=== PATIENT | male | born 1975 | race Hispanic/Latino ===

== ENCOUNTER → 2017-07-11 | Outpatient (CLI) | payer MEDICARE ==
[~2017-07-11] MED LIST: AEC81 PO; AMLO10TA2 PO; FOLI1CAP2 PO; INSU10VI3 SQ; METO50TA18 PO; ONDA4TAB7 PO; REGADENOSON 0.4 MG/5 ML PF SYG IVP SCH; [UNRECOGNIZED DRUG - CODE] PO
== END | disposition home or self-care (01) ==
LOC: SHCH 07:43
PROVIDERS: ATTEND Internal Medicine Cardiovascular Disease
DX: I12.9 Hypertensive chronic kidney disease with stage 1 through stage 4 chronic kidney disease, or unspecified chronic kidney disease (principal); E11.22 Type 2 diabetes mellitus with diabetic chronic kidney disease; E11.40 Type 2 diabetes mellitus with diabetic neuropathy, unspecified; N18.9 Chronic kidney disease, unspecified; I25.5 Ischemic cardiomyopathy
CPT/HCPCS: 78452; 93017; 96374; A9500 ×2; J2785

== ENCOUNTER → 2017-08-10 | Outpatient (CLI) | payer MEDICARE, OTHER ==
[~2017-08-10] MED LIST changes: -REGADENOSON 0.4 MG/5 ML PF SYG IVP SCH
== END | disposition home or self-care (01) ==
LOC: LAB 15:33
PROVIDERS: ATTEND Internal Medicine
DX: E11.22 Type 2 diabetes mellitus with diabetic chronic kidney disease (principal); E11.21 Type 2 diabetes mellitus with diabetic nephropathy; N18.6 End stage renal disease; Z94.0 Kidney transplant status
CPT/HCPCS: 36415; 86850; 86900; 86901

== ENCOUNTER 2017-10-12 22:37 | Emergency (ER) | payer MEDICARE ==
[2017-10-12] MEDS ORDERED: ASPIRIN 325MG EC TAB 325 MG TABLET.DR PO ONE (22:50)
[2017-10-12 23:21] LABS: BASOPHILS % (AUTO) 0.6 % (0.0-5.0); EOSINOPHILS % (AUTO) 3.3 % (0.0-8.0); LYMPHOCYTES % (AUTO) 33.3 % (21.0-51.0); MEAN CORPUSCULAR HEMOGLOBIN 29.4 pg (27.0-33.0); MEAN CORPUSCULAR HGB CONC 34.2 g/dL (32.0-36.0); MEAN CORPUSCULAR VOLUME 86.2 fL (79-99); MONOCYTES % (AUTO) 12.6 % (3.0-13.0); NEUTROPHILS % (AUTO) 50.2 % (40.0-77.0); PLATELET COUNT (AUTO) 323 K/uL (130-400); RED BLOOD CELL COUNT(AUTO) 3.95 MIL/uL (4.50-6.20); WHITE BLOOD COUNT (AUTO) 12.2 K/uL (4.8-10.8)
[2017-10-12 23:29] LABS: INR 0.93 (0.85-1.15); PARTIAL THROMBOPLASTIN TIME 27.1 SEC (26.3-35.5); PROTHROMBIN TIME 9.8 SEC (9.6-11.6)
[2017-10-12 23:47] LABS: ALBUMIN 3.3 g/dL (3.5-5.0); BILIRUBIN,TOTAL 0.4 mg/dL (0.2-1.0); CREATINE KINASE MB 9.5 ng/mL (0.5-3.6); POTASSIUM 4.1 mmol/L (3.5-5.1); TOTAL PROTEIN, SERUM 8.9 g/dL (6.0-8.3)
[2017-10-12 23:50] LABS: CREATININE 7.9 mg/dL (0.5-1.5)
== END 2017-10-13 02:31 | disposition home or self-care (01) ==
LOC: EDH 22:37
DX: R07.9 Chest pain, unspecified (principal); J40 Bronchitis, not specified as acute or chronic; I12.0 Hypertensive chronic kidney disease with stage 5 chronic kidney disease or end stage renal disease; E11.22 Type 2 diabetes mellitus with diabetic chronic kidney disease; N18.6 End stage renal disease; E78.5 Hyperlipidemia, unspecified; J18.9 Pneumonia, unspecified organism; Z99.2 Dependence on renal dialysis
CPT/HCPCS: 36415; 71045; 80053; 82550; 82553; 83874; 84484; 85025; 85610; 85730; 93005; 94761

== ENCOUNTER 2017-12-04 02:58 | Emergency (ER) | payer MEDICARE ==
[2017-12-04 05:31] LABS: BASOPHILS % (AUTO) 0.6 % (0.0-5.0); EOSINOPHILS % (AUTO) 3.2 % (0.0-8.0); HEMATOCRIT 32.8 % (42-54); LYMPHOCYTES % (AUTO) 33.9 % (21.0-51.0); MEAN CORPUSCULAR HEMOGLOBIN 30.6 pg (27.0-33.0); MEAN CORPUSCULAR HGB CONC 35.4 g/dL (32.0-36.0); MEAN CORPUSCULAR VOLUME 86.3 fL (79-99); MONOCYTES % (AUTO) 11.7 % (3.0-13.0); NEUTROPHILS % (AUTO) 50.6 % (40.0-77.0); NUCLEATED RED BLOOD CELLS 0.1 % (0.0-0.19); PLATELET COUNT (AUTO) 305 K/uL (130-400); RED CELL DISTRIBUTION WIDTH 13.9 % (11.0-15.5); WHITE BLOOD COUNT (AUTO) 14.6 K/uL (4.8-10.8)
[2017-12-04 05:45] LABS: INR 0.9 (0.85-1.15); PARTIAL THROMBOPLASTIN TIME 25.7 SEC (26.3-35.5); PROTHROMBIN TIME 9.5 SEC (9.6-11.6)
[2017-12-04 05:49] LABS: RAPID GROUP A STREP NEGATIVE (NEGATIVE)
[2017-12-04 05:58] LABS: ALBUMIN 3.3 g/dL (3.5-5.0); BILIRUBIN,TOTAL 0.3 mg/dL (0.2-1.0); POTASSIUM 5.2 mmol/L (3.5-5.1)
[2017-12-04 06:04] LABS: CREATININE 11.9 mg/dL (0.5-1.5)
== END 2017-12-04 06:17 | disposition home or self-care (01) ==
LOC: EDH 02:58
DX: J20.9 Acute bronchitis, unspecified (principal); J10.1 Influenza due to other identified influenza virus with other respiratory manifestations; I12.0 Hypertensive chronic kidney disease with stage 5 chronic kidney disease or end stage renal disease; E11.22 Type 2 diabetes mellitus with diabetic chronic kidney disease; N18.6 End stage renal disease; Z79.4 Long term (current) use of insulin; Z99.2 Dependence on renal dialysis
CPT/HCPCS: 36415; 71045; 80053; 82550; 83605; 83690; 83874; 84484; 85025; 85610; 85730; 87804; 87880; 93005; 94761

== ENCOUNTER 2018-04-28 07:03 | Emergency (ER) | payer MEDICARE ==
[~2018-04-28 07:03] MED LIST changes: -AMLO10TA2 PO; +AMLO10TA6 PO; -FOLI1CAP2 PO; -ONDA4TAB7 PO
[2018-04-28] MEDS ORDERED: MORPHINE SULFATE 4 MG/1ML SYG ONE (07:54)
[2018-04-28] MEDS ORDERED: ONDANSETRON HCL 4 MG/2 ML VIAL ONE (07:54)
[2018-04-28 07:58] LABS: BASOPHILS % (AUTO) 1.4 % (0.0-5.0); EOSINOPHILS % (AUTO) 3.2 % (0.0-8.0); HEMATOCRIT 35.2 % (42-54); LYMPHOCYTES % (AUTO) 23.9 % (21.0-51.0); MEAN CORPUSCULAR HEMOGLOBIN 29.4 pg (27.0-33.0); MEAN CORPUSCULAR HGB CONC 33.7 g/dL (32.0-36.0); MONOCYTES % (AUTO) 10.8 % (3.0-13.0); NEUTROPHILS % (AUTO) 60.7 % (40.0-77.0); PLATELET COUNT (AUTO) 318 K/uL (130-400); RED BLOOD CELL COUNT(AUTO) 4.04 MIL/uL (4.50-6.20); RED CELL DISTRIBUTION WIDTH 14.4 % (11.0-15.5)
[2018-04-28 08:19] LABS: ALBUMIN 3.1 g/dL (3.5-5.0); BILIRUBIN,TOTAL 0.3 mg/dL (0.2-1.0); TOTAL PROTEIN, SERUM 9.2 g/dL (6.0-8.3)
[2018-04-28 08:25] LABS: CREATININE 9.7 mg/dL (0.5-1.5)
[2018-05-12] MEDS ORDERED: OSEL30CA PO (09:22)
[2018-05-12] MEDS ORDERED: CLIN300C9 PO (10:00)
== END 2018-04-28 10:19 | disposition home or self-care (01) ==
LOC: EDH 07:03
DX: K29.70 Gastritis, unspecified, without bleeding (principal); I12.0 Hypertensive chronic kidney disease with stage 5 chronic kidney disease or end stage renal disease; E11.22 Type 2 diabetes mellitus with diabetic chronic kidney disease; N18.6 End stage renal disease; E78.5 Hyperlipidemia, unspecified; J18.9 Pneumonia, unspecified organism; Z99.2 Dependence on renal dialysis
CPT/HCPCS: 36415 ×2; 74176; 80048; 80053; 83690; 84484; 85025 ×2; 93005; 96374; 96375; 99285 ×2; J2270; J2405

== ENCOUNTER 2018-04-28 18:37 | Emergency (ER) | payer MEDICARE ==
[2018-04-28 19:54] LABS: BASOPHILS % (AUTO) 1.3 % (0.0-5.0); HEMATOCRIT 35.2 % (42-54); LYMPHOCYTES % (AUTO) 27.8 % (21.0-51.0); MEAN CORPUSCULAR HEMOGLOBIN 29.5 pg (27.0-33.0); MEAN CORPUSCULAR HGB CONC 33.7 g/dL (32.0-36.0); MEAN CORPUSCULAR VOLUME 87.5 fL (79-99); MONOCYTES % (AUTO) 9.8 % (3.0-13.0); NEUTROPHILS % (AUTO) 58.1 % (40.0-77.0); PLATELET COUNT (AUTO) 300 K/uL (130-400); RED BLOOD CELL COUNT(AUTO) 4.02 MIL/uL (4.50-6.20); RED CELL DISTRIBUTION WIDTH 14.1 % (11.0-15.5); WHITE BLOOD COUNT (AUTO) 10.1 K/uL (4.8-10.8)
[2018-04-28 20:12] LABS: POTASSIUM 4.6 mmol/L (3.5-5.1)
== END 2018-04-28 21:07 | disposition home or self-care (01) ==
LOC: EDH 18:37
DX: R42 Dizziness and giddiness (principal)
CPT/HCPCS: 36415; 80048; 84484; 85025; 93005

== ENCOUNTER 2018-05-03 17:36 | Emergency (ER) | payer MEDICARE ==
[2018-05-03 18:50] LABS: BASOPHILS % (AUTO) 0.8 % (0.0-5.0); EOSINOPHILS % (AUTO) 4.9 % (0.0-8.0); HEMATOCRIT 33.5 % (42-54); LYMPHOCYTES % (AUTO) 35.1 % (21.0-51.0); MEAN CORPUSCULAR HEMOGLOBIN 29.2 pg (27.0-33.0); MEAN CORPUSCULAR HGB CONC 33.8 g/dL (32.0-36.0); MEAN CORPUSCULAR VOLUME 86.5 fL (79-99); MONOCYTES % (AUTO) 13.1 % (3.0-13.0); NEUTROPHILS % (AUTO) 46.1 % (40.0-77.0); PLATELET COUNT (AUTO) 280 K/uL (130-400); RED BLOOD CELL COUNT(AUTO) 3.87 MIL/uL (4.50-6.20); RED CELL DISTRIBUTION WIDTH 14.3 % (11.0-15.5); WHITE BLOOD COUNT (AUTO) 10.2 K/uL (4.8-10.8)
[2018-05-03] MEDS ORDERED: ONDANSETRON HCL 4 MG/2 ML VIAL ONE (18:59)
[2018-05-03] MEDS ORDERED: LABETALOL HCL 5 MG/ML 20ML VIAL IV ONE (18:59)
[2018-05-03] MEDS ORDERED: FENTANYL CITRATE PF 50 MCG/1 ML 2ML VIAL ONE (19:00)
[2018-05-03 19:03] LABS: PARTIAL THROMBOPLASTIN TIME 28.2 SEC (26.3-35.5)
[2018-05-03 19:04] LABS: BILIRUBIN,TOTAL 0.4 mg/dL (0.2-1.0); POTASSIUM 4.6 mmol/L (3.5-5.1); TOTAL PROTEIN, SERUM 8.9 g/dL (6.0-8.3)
[2018-05-03 19:08] LABS: CREATININE 11.1 mg/dL (0.5-1.5)
[2018-05-03 19:12] LABS: INR 0.95 (0.85-1.15)
== END 2018-05-03 20:06 | disposition home or self-care (01) ==
LOC: EDH 17:36
DX: T82.591A Other mechanical complication of surgically created arteriovenous shunt, initial encounter (principal); M79.602 Pain in left arm; I12.0 Hypertensive chronic kidney disease with stage 5 chronic kidney disease or end stage renal disease; E11.22 Type 2 diabetes mellitus with diabetic chronic kidney disease; N18.6 End stage renal disease; Z99.2 Dependence on renal dialysis
CPT/HCPCS: 36415; 80053; 85025; 85610; 85730; 96374; 96375; 99284; J2405; J3010; J3490

== ENCOUNTER 2018-05-25 17:13 | Inpatient (IN) | payer MEDICARE ==
[~2018-05-25] VITALS: Ht 182.9 cm; Wt 133.7 kg
[~2018-05-25 17:13] MED LIST changes: +CLIN300C9 PO; +OSEL30CA PO
[2018-05-25 18:34] LABS: BASOPHILS % (AUTO) 0.4 % (0.0-5.0); EOSINOPHILS % (AUTO) 0.9 % (0.0-8.0); HEMATOCRIT 30.6 % (42-54); LYMPHOCYTES % (AUTO) 16.1 % (21.0-51.0); MEAN CORPUSCULAR HEMOGLOBIN 29.3 pg (27.0-33.0); MEAN CORPUSCULAR HGB CONC 33.7 g/dL (32.0-36.0); MEAN CORPUSCULAR VOLUME 86.9 fL (79-99); MONOCYTES % (AUTO) 9.7 % (3.0-13.0); NEUTROPHILS % (AUTO) 72.9 % (40.0-77.0); PLATELET COUNT (AUTO) 379 K/uL (130-400); RED BLOOD CELL COUNT(AUTO) 3.52 MIL/uL (4.50-6.20); RED CELL DISTRIBUTION WIDTH 14.2 % (11.0-15.5); WHITE BLOOD COUNT (AUTO) 20.3 K/uL (4.8-10.8)
[2018-05-25 18:47] LABS: ALBUMIN 2.7 g/dL (3.5-5.0); BILIRUBIN,TOTAL 0.3 mg/dL (0.2-1.0); POTASSIUM 4.8 mmol/L (3.5-5.1)
[2018-05-25] MEDS ORDERED: CEFTRIAXONE SODIUM 1 GM ONE (18:48)
[2018-05-25] MEDS ORDERED: SODIUM CHLORIDE 0.9% 100 ML IV ONE (18:48)
[2018-05-25] MEDS ORDERED: SODIUM CHLORIDE 0.9% 1000ML 1,000 ML IV ONE (18:48)
[2018-05-25] MEDS ORDERED: ACETAMINOPHEN 325 MG TAB ONE (18:48)
[2018-05-25 18:56] LABS: CREATININE 7.5 mg/dL (0.5-1.5)
[2018-05-25] MEDS ORDERED: INSULIN HUMULIN R 100 UNIT/ML 3ML ONE (19:26)
[2018-05-25] MEDS ORDERED: DEXTROSE 50%-WATER 50 ML DISP.SYRIN IV PRN (19:45)
[2018-05-25] MEDS ORDERED: GLUCAGON 1MG KIT 1 MG ML IM PRN (19:45)
[2018-05-25] MEDS ORDERED: OSELTAMIVIR PHOSPHATE 75 MG CAP ONE (20:10)
[2018-05-25] MEDS ORDERED: ACETAMINOPHEN 325 MG TAB PO PRN (20:45)
[2018-05-25] MEDS ORDERED: ONDANSETRON HCL 4 MG/2 ML VIAL IV PRN (20:45)
[2018-05-25] MEDS ORDERED: CEFTRIAXONE SODIUM 1 GM IV SCH (20:45)
[2018-05-25] MEDS: INSULIN HUMULIN R 100 UNIT/ML 3ML SQ SCH (21:00)
[2018-05-25] MEDS: OSELTAMIVIR PHOSPHATE 75 MG CAP PO SCH (21:00)
[2018-05-25 21:38] LABS: HEMOGLOBIN A1C 8.5 % (4.0-6.0)
[2018-05-25 22:18] LABS: APPEARANCE,URINE Clear (CLEAR); BILIRUBIN,URINE Negative (NEGATIVE); COLOR,URINE Yellow (YELLOW); GLUCOSE, URINE (UA) >=1000 mg/dL (NEGATIVE); KETONES,URINE Negative (NEGATIVE); LEUKOCYTE ESTERASE ,URINE Negative (NEGATIVE); NITRATE,URINE Negative (NEGATIVE); OCCULT BLOOD,URINE Trace (NEGATIVE); PH,URINE 8.5 (5.0-8.0); PROTEIN,URINE 300 (NEGATIVE); UROBILINOGEN,URINE 0.2 mg/dL (0.2-1.0)
[2018-05-25 22:29] LABS: BACTERIA,URINE Few /HPF (None Seen)
[2018-05-25 23:05] VITALS: BP 156/75
[2018-05-26] MEDS: SODIUM CHLORIDE 0.9% 1000ML 1,000 ML IV SCH ×2 (01:36→08:04)
[2018-05-26 03:49] VITALS: BP 145/65
[2018-05-26 04:19] LABS: BASOPHILS % (AUTO) 0.5 % (0.0-5.0); EOSINOPHILS % (AUTO) 3.3 % (0.0-8.0); HEMATOCRIT 29.2 % (42-54); LYMPHOCYTES % (AUTO) 24.5 % (21.0-51.0); MEAN CORPUSCULAR HEMOGLOBIN 28.7 pg (27.0-33.0); MONOCYTES % (AUTO) 10.8 % (3.0-13.0); NEUTROPHILS % (AUTO) 60.9 % (40.0-77.0); PLATELET COUNT (AUTO) 315 K/uL (130-400); RED BLOOD CELL COUNT(AUTO) 3.35 MIL/uL (4.50-6.20); RED CELL DISTRIBUTION WIDTH 14.4 % (11.0-15.5); WHITE BLOOD COUNT (AUTO) 16.7 K/uL (4.8-10.8)
[2018-05-26 04:36] LABS: ALBUMIN 2.4 g/dL (3.5-5.0); BILIRUBIN,TOTAL 0.2 mg/dL (0.2-1.0); POTASSIUM 4.2 mmol/L (3.5-5.1)
[2018-05-26] MEDS: INSULIN HUMULIN R 100 UNIT/ML 3ML SQ SCH ×4 (06:43→20:58)
[2018-05-26] MEDS: ENOXAPARIN SODIUM 40 MG/0.4 ML SYRINGE SQ SCH (08:02)
[2018-05-26] MEDS: PANTOPRAZOLE SODIUM 40 MG TABLET.DR PO SCH (08:02)
[2018-05-26 08:11] VITALS: BP 134/60
[2018-05-26] MEDS: LANTHANUM CARBONATE 1000 MG PO SCH ×2 (11:25→16:36)
[2018-05-26 11:27] VITALS: BP_SYST 107
[2018-05-26] MEDS: INSULIN LISPRO 100 UNIT/ML 3ML SQ SCH ×2 (11:28→16:36)
[2018-05-26 16:34] VITALS: BP 168/81
[2018-05-26] MEDS ORDERED: FOLI1TAB85 PO (18:09)
[2018-05-26] MEDS ORDERED: CALC667T5 PO (18:09)
[2018-05-26 19:35] VITALS: BP 147/78
[2018-05-26] MEDS: CEFEPIME HCL 1 GM VIAL IVP SCH (20:47)
[2018-05-26] MEDS: METOPROLOL TARTRATE 50 MG TAB PO SCH (20:48)
[2018-05-26] MEDS: ASPIRIN 81 MG EC TAB PO SCH (20:48)
[2018-05-26] MEDS: INSULIN GLARGINE 100 UNITS/ML 10 ML VIAL SQ SCH (20:59)
[2018-05-26 23:04] VITALS: BP 128/60
[2018-05-27 03:13] VITALS: BP 151/72
[2018-05-27 03:48] LABS: HEMATOCRIT 28.1 % (42-54); MEAN CORPUSCULAR HGB CONC 34.3 g/dL (32.0-36.0); MEAN CORPUSCULAR VOLUME 87.4 fL (79-99); PLATELET COUNT (AUTO) 339 K/uL (130-400); RED BLOOD CELL COUNT(AUTO) 3.21 MIL/uL (4.50-6.20); RED CELL DISTRIBUTION WIDTH 14.4 % (11.0-15.5); WHITE BLOOD COUNT (AUTO) 11.6 K/uL (4.8-10.8)
[2018-05-27 03:55] LABS: CREATININE 7.7 mg/dL (0.5-1.5); PHOSPHORUS 4.2 mg/dL (2.5-4.9); POTASSIUM 4.4 mmol/L (3.5-5.1)
[2018-05-27 04:42] LABS: BAND NEUTROPHILS % (MANUAL) 4 % (0-2); BASOPHILS % (MANUAL) 1 % (0-2); EOSINOPHILS % (MANUAL) 1 % (1-6); LYMPHOCYTES % (MANUAL) 22 % (22-44); MAN.DIFF COMMENT-IMPRESSION MANUAL DIFFERENTIAL; MONOCYTES % (MANUAL) 6 % (2-9); REACTIVE LYMPHOCYTES 3 % (0-0); SEGMENTED NEUTROPHILS % 63 % (40-70)
[2018-05-27] MEDS: LANTHANUM CARBONATE 1000 MG PO SCH ×3 (06:06→16:49)
[2018-05-27] MEDS: INSULIN HUMULIN R 100 UNIT/ML 3ML SQ SCH ×4 (06:10→21:38)
[2018-05-27] MEDS: INSULIN LISPRO 100 UNIT/ML 3ML SQ SCH ×3 (06:11→16:48)
[2018-05-27 07:49] VITALS: BP 137/73
[2018-05-27] MEDS: CALCIUM ACETATE 667 MG CAPSULE PO SCH ×3 (07:57→16:44)
[2018-05-27] MEDS: ENOXAPARIN SODIUM 40 MG/0.4 ML SYRINGE SQ SCH (07:59)
[2018-05-27] MEDS: PANTOPRAZOLE SODIUM 40 MG TABLET.DR PO SCH (08:00)
[2018-05-27] MEDS: AMLODIPINE BESYLATE 5 MG TAB PO SCH (08:00)
[2018-05-27] MEDS: FOLIC ACID/VITAMIN B COMP W-C 1 MG CAPSULE PO SCH (08:00)
[2018-05-27] MEDS ORDERED: FOLIC ACID/VITAMIN B COMP W-C 1 MG CAPSULE PO SCH (09:00)
[2018-05-27 11:11] VITALS: BP 154/71
[2018-05-27] MEDS ORDERED: LACTULOSE 20 GM/30 ML UDCUP PO PRN (12:00)
[2018-05-27 16:06] VITALS: BP 171/82
[2018-05-27 19:30] VITALS: BP 157/75
[2018-05-27] MEDS: ASPIRIN 81 MG EC TAB PO SCH (21:29)
[2018-05-27] MEDS: CEFEPIME HCL 1 GM VIAL IVP SCH (21:29)
[2018-05-27] MEDS: OSELTAMIVIR PHOSPHATE 75 MG CAP PO SCH (21:29)
[2018-05-27] MEDS: METOPROLOL TARTRATE 50 MG TAB PO SCH (21:29)
[2018-05-27] MEDS: INSULIN GLARGINE 100 UNITS/ML 10 ML VIAL SQ SCH (21:39)
[2018-05-28] VITALS (7 sets, daily range): BP systolic 131–167; BP diastolic 50–85
[2018-05-28 03:39] LABS: HEMATOCRIT 27.2 % (42-54); MEAN CORPUSCULAR HEMOGLOBIN 29.8 pg (27.0-33.0); MEAN CORPUSCULAR HGB CONC 34.1 g/dL (32.0-36.0); MEAN CORPUSCULAR VOLUME 87.3 fL (79-99); PLATELET COUNT (AUTO) 324 K/uL (130-400); RED BLOOD CELL COUNT(AUTO) 3.12 MIL/uL (4.50-6.20); RED CELL DISTRIBUTION WIDTH 14.3 % (11.0-15.5); WHITE BLOOD COUNT (AUTO) 16.6 K/uL (4.8-10.8)
[2018-05-28 03:52] LABS: CRP QUANTITATIVE 178.2 mg/L (0.00-9.0); POTASSIUM 4.6 mmol/L (3.5-5.1)
[2018-05-28] MEDS: LANTHANUM CARBONATE 1000 MG PO SCH ×3 (05:48→17:00)
[2018-05-28] MEDS: INSULIN LISPRO 100 UNIT/ML 3ML SQ SCH ×3 (05:50→17:14)
[2018-05-28] MEDS: INSULIN HUMULIN R 100 UNIT/ML 3ML SQ SCH ×4 (05:51→22:01)
[2018-05-28] MEDS: FOLIC ACID/VITAMIN B COMP W-C 1 MG CAPSULE PO SCH (09:24)
[2018-05-28] MEDS: PANTOPRAZOLE SODIUM 40 MG TABLET.DR PO SCH (09:24)
[2018-05-28] MEDS: CALCIUM ACETATE 667 MG CAPSULE PO SCH ×3 (09:24→17:21)
[2018-05-28] MEDS: AMLODIPINE BESYLATE 5 MG TAB PO SCH (09:24)
[2018-05-28] MEDS: ENOXAPARIN SODIUM 40 MG/0.4 ML SYRINGE SQ SCH (09:25)
[2018-05-28] MEDS: LACTULOSE 20 GM/30 ML UDCUP PO SCH ×2 (17:22→21:30)
[2018-05-28] MEDS: INSULIN GLARGINE 100 UNITS/ML 10 ML VIAL SQ SCH (22:02)
[2018-05-28] MEDS: CEFEPIME HCL 1 GM VIAL IVP SCH (22:04)
[2018-05-28] MEDS: ASPIRIN 81 MG EC TAB PO SCH (22:05)
[2018-05-28] MEDS: METOPROLOL TARTRATE 50 MG TAB PO SCH (22:05)
[2018-05-29] MEDS: LACTULOSE 20 GM/30 ML UDCUP PO SCH ×2 (03:30→08:24)
[2018-05-29 03:34] VITALS: BP 137/72
[2018-05-29 04:20] LABS: HEMATOCRIT 28.2 % (42-54); MEAN CORPUSCULAR HEMOGLOBIN 28.3 pg (27.0-33.0); MEAN CORPUSCULAR HGB CONC 32.8 g/dL (32.0-36.0); MEAN CORPUSCULAR VOLUME 86.3 fL (79-99); PLATELET COUNT (AUTO) 290 K/uL (130-400); RED BLOOD CELL COUNT(AUTO) 3.27 MIL/uL (4.50-6.20); RED CELL DISTRIBUTION WIDTH 14.4 % (11.0-15.5); WHITE BLOOD COUNT (AUTO) 14.9 K/uL (4.8-10.8)
[2018-05-29 04:30] LABS: POTASSIUM 4.9 mmol/L (3.5-5.1)
[2018-05-29 04:46] LABS: CRP QUANTITATIVE 220.6 mg/L (0.00-9.0)
[2018-05-29] MEDS: LANTHANUM CARBONATE 1000 MG PO SCH ×3 (06:10→16:51)
[2018-05-29 07:00] VITALS: BP 145/76
[2018-05-29] MEDS: INSULIN LISPRO 100 UNIT/ML 3ML SQ SCH ×3 (07:12→17:16)
[2018-05-29] MEDS: INSULIN HUMULIN R 100 UNIT/ML 3ML SQ SCH ×4 (07:13→20:57)
[2018-05-29] MEDS: PANTOPRAZOLE SODIUM 40 MG TABLET.DR PO SCH (08:23)
[2018-05-29] MEDS: CALCIUM ACETATE 667 MG CAPSULE PO SCH ×3 (08:24→17:12)
[2018-05-29] MEDS: FOLIC ACID/VITAMIN B COMP W-C 1 MG CAPSULE PO SCH (08:24)
[2018-05-29] MEDS: AMLODIPINE BESYLATE 5 MG TAB PO SCH (09:00)
[2018-05-29] MEDS: ENOXAPARIN SODIUM 40 MG/0.4 ML SYRINGE SQ SCH (09:00)
[2018-05-29 11:00] VITALS: BP 138/67
[2018-05-29 16:43] VITALS: BP 180/86
[2018-05-29 20:00] VITALS: BP 164/75
[2018-05-29] MEDS ORDERED: 0.9% SODIUM CHLORIDE 250 ML IV BAG IV PRN (20:00)
[2018-05-29] MEDS ORDERED: SODIUM CHLORIDE 0.9% 1000ML 1,000 ML IV PRN (20:00)
[2018-05-29] MEDS ORDERED: ALBUMIN (HUMAN) 25% 100 ML IV PRN (20:00)
[2018-05-29] MEDS: CEFEPIME HCL 1 GM VIAL IVP SCH (20:53)
[2018-05-29] MEDS: ASPIRIN 81 MG EC TAB PO SCH (20:54)
[2018-05-29] MEDS: OSELTAMIVIR PHOSPHATE 75 MG CAP PO SCH (20:54)
[2018-05-29] MEDS: METOPROLOL TARTRATE 50 MG TAB PO SCH (20:54)
[2018-05-29] MEDS: INSULIN GLARGINE 100 UNITS/ML 10 ML VIAL SQ SCH (20:56)
[2018-05-29 23:56] VITALS: BP 166/79
[2018-05-30 04:00] VITALS: BP 128/52
[2018-05-30 05:24] LABS: HEMATOCRIT 26.4 % (42-54); MEAN CORPUSCULAR HEMOGLOBIN 29.9 pg (27.0-33.0); MEAN CORPUSCULAR HGB CONC 34.4 g/dL (32.0-36.0); PLATELET COUNT (AUTO) 313 K/uL (130-400); RED BLOOD CELL COUNT(AUTO) 3.04 MIL/uL (4.50-6.20); RED CELL DISTRIBUTION WIDTH 14.4 % (11.0-15.5); WHITE BLOOD COUNT (AUTO) 13.4 K/uL (4.8-10.8)
[2018-05-30 05:41] LABS: CRP QUANTITATIVE 213.9 mg/L (0.00-9.0); POTASSIUM 4.4 mmol/L (3.5-5.1)
[2018-05-30 05:45] LABS: CREATININE 8.8 mg/dL (0.5-1.5)
[2018-05-30] MEDS: INSULIN LISPRO 100 UNIT/ML 3ML SQ SCH ×3 (06:25→17:51)
[2018-05-30] MEDS: LANTHANUM CARBONATE 1000 MG PO SCH ×3 (07:30→17:00)
[2018-05-30] MEDS: CALCIUM ACETATE 667 MG CAPSULE PO SCH ×3 (08:00→17:09)
[2018-05-30 08:11] VITALS: BP 149/83
[2018-05-30] MEDS: PANTOPRAZOLE SODIUM 40 MG TABLET.DR PO SCH (09:26)
[2018-05-30] MEDS: FOLIC ACID/VITAMIN B COMP W-C 1 MG CAPSULE PO SCH (09:26)
[2018-05-30] MEDS: AMLODIPINE BESYLATE 5 MG TAB PO SCH (09:26)
[2018-05-30] MEDS: ENOXAPARIN SODIUM 40 MG/0.4 ML SYRINGE SQ SCH (09:28)
[2018-05-30] MEDS: INSULIN HUMULIN R 100 UNIT/ML 3ML SQ SCH ×4 (10:20→20:43)
[2018-05-30 11:00] VITALS: BP 142/69
[2018-05-30] MEDS ORDERED: VANCOMYCIN PROTOCOL PER PHARMACY IV SCH (14:30)
[2018-05-30] MEDS ORDERED: COMPOUND IV REFRIGERATED 1 EACH IVSOLN MISC PRN (14:45)
[2018-05-30 16:29] VITALS: BP 146/77
[2018-05-30] MEDS: VANCOMYCIN 1.75 GM in SODIUM CHLORIDE 0.9% 250 ML IV SCH (17:50)
[2018-05-30] MEDS: MEROPENEM 1 GM VIAL IVP SCH (17:50)
[2018-05-30 20:00] VITALS: BP 151/69
[2018-05-30] MEDS: METOPROLOL TARTRATE 50 MG TAB PO SCH (21:40)
[2018-05-30] MEDS: ASPIRIN 81 MG EC TAB PO SCH (21:40)
[2018-05-30] MEDS: INSULIN GLARGINE 100 UNITS/ML 10 ML VIAL SQ SCH (21:48)
[2018-05-31] VITALS: BP 141/62
[2018-05-31 04:00] VITALS: BP 144/78
[2018-05-31] MEDS: INSULIN HUMULIN R 100 UNIT/ML 3ML SQ SCH ×4 (06:36→21:00)
[2018-05-31] MEDS: LANTHANUM CARBONATE 1000 MG PO SCH ×3 (07:30→17:00)
[2018-05-31] MEDS: CALCIUM ACETATE 667 MG CAPSULE PO SCH ×3 (08:00→18:43)
[2018-05-31 09:00] VITALS: BP 141/61
[2018-05-31] MEDS: FOLIC ACID/VITAMIN B COMP W-C 1 MG CAPSULE PO SCH (09:53)
[2018-05-31] MEDS: AMLODIPINE BESYLATE 5 MG TAB PO SCH (09:53)
[2018-05-31] MEDS: PANTOPRAZOLE SODIUM 40 MG TABLET.DR PO SCH (09:53)
[2018-05-31] MEDS: ENOXAPARIN SODIUM 40 MG/0.4 ML SYRINGE SQ SCH (09:54)
[2018-05-31] MEDS: INSULIN LISPRO 100 UNIT/ML 3ML SQ SCH ×3 (10:11→18:42)
[2018-05-31 11:00] VITALS: BP 148/71
[2018-05-31] MEDS: IPRATROPIUM/ALBUTEROL SULFATE 3 ML SOLUTION IH SCH ×3 (11:56→23:11)
[2018-05-31] MEDS: MEROPENEM 1 GM VIAL IVP SCH (18:43)
[2018-05-31 20:00] VITALS: BP 147/83
[2018-05-31] MEDS: METOPROLOL TARTRATE 50 MG TAB PO SCH (22:01)
[2018-05-31] MEDS: ASPIRIN 81 MG EC TAB PO SCH (22:01)
[2018-05-31] MEDS: INSULIN GLARGINE 100 UNITS/ML 10 ML VIAL SQ SCH (22:07)
[2018-06-01] VITALS (7 sets, daily range): BP systolic 120–149; BP diastolic 51–98
[2018-06-01 05:00] LABS: HEMATOCRIT 27.7 % (42-54); MEAN CORPUSCULAR HEMOGLOBIN 29.7 pg (27.0-33.0); MEAN CORPUSCULAR HGB CONC 34.3 g/dL (32.0-36.0); MEAN CORPUSCULAR VOLUME 86.7 fL (79-99); PLATELET COUNT (AUTO) 325 K/uL (130-400); RED CELL DISTRIBUTION WIDTH 14.4 % (11.0-15.5); WHITE BLOOD COUNT (AUTO) 11.4 K/uL (4.8-10.8)
[2018-06-01 05:22] LABS: CREATININE 9.1 mg/dL (0.5-1.5)
[2018-06-01] MEDS: IPRATROPIUM/ALBUTEROL SULFATE 3 ML SOLUTION IH SCH ×4 (06:38→23:37)
[2018-06-01] MEDS: INSULIN HUMULIN R 100 UNIT/ML 3ML SQ SCH ×4 (06:51→21:02)
[2018-06-01] MEDS: LANTHANUM CARBONATE 1000 MG PO SCH ×3 (07:30→16:56)
[2018-06-01] MEDS: CALCIUM ACETATE 667 MG CAPSULE PO SCH ×3 (08:56→16:38)
[2018-06-01] MEDS: PANTOPRAZOLE SODIUM 40 MG TABLET.DR PO SCH (08:56)
[2018-06-01] MEDS: AMLODIPINE BESYLATE 5 MG TAB PO SCH (08:56)
[2018-06-01] MEDS: ENOXAPARIN SODIUM 30 MG/0.3 ML SQ SCH (08:57)
[2018-06-01] MEDS: FOLIC ACID/VITAMIN B COMP W-C 1 MG CAPSULE PO SCH (08:57)
[2018-06-01] MEDS: INSULIN LISPRO 100 UNIT/ML 3ML SQ SCH ×3 (09:05→16:37)
[2018-06-01] MEDS: VANCOMYCIN 1.75 GM in SODIUM CHLORIDE 0.9% 250 ML IV SCH (16:27)
[2018-06-01] MEDS: MEROPENEM 1 GM VIAL IVP SCH (16:31)
[2018-06-01] MEDS: ASPIRIN 81 MG EC TAB PO SCH (21:00)
[2018-06-01] MEDS: METOPROLOL TARTRATE 50 MG TAB PO SCH (21:01)
[2018-06-01] MEDS: INSULIN GLARGINE 100 UNITS/ML 10 ML VIAL SQ SCH (21:03)
[2018-06-02 00:09] VITALS: BP 139/72
[2018-06-02 03:24] VITALS: BP 115/54
[2018-06-02] MEDS: IPRATROPIUM/ALBUTEROL SULFATE 3 ML SOLUTION IH SCH ×3 (06:25→18:46)
[2018-06-02] MEDS: INSULIN HUMULIN R 100 UNIT/ML 3ML SQ SCH ×4 (06:34→20:51)
[2018-06-02] MEDS: LANTHANUM CARBONATE 1000 MG PO SCH ×3 (06:37→17:00)
[2018-06-02 07:49] VITALS: BP 165/84
[2018-06-02] MEDS: INSULIN LISPRO 100 UNIT/ML 3ML SQ SCH ×3 (08:41→16:13)
[2018-06-02] MEDS: PANTOPRAZOLE SODIUM 40 MG TABLET.DR PO SCH (08:42)
[2018-06-02] MEDS: FOLIC ACID/VITAMIN B COMP W-C 1 MG CAPSULE PO SCH (08:42)
[2018-06-02] MEDS: AMLODIPINE BESYLATE 5 MG TAB PO SCH ×2 (08:42→16:12)
[2018-06-02] MEDS: CALCIUM ACETATE 667 MG CAPSULE PO SCH ×4 (08:42→14:16)
[2018-06-02] MEDS: ENOXAPARIN SODIUM 30 MG/0.3 ML SQ SCH (08:43)
[2018-06-02] MEDS: MEROPENEM 1 GM VIAL IVP SCH (14:03)
[2018-06-02 16:00] VITALS: BP 136/59
[2018-06-02 19:32] VITALS: BP 146/62
[2018-06-02] MEDS: METOPROLOL TARTRATE 50 MG TAB PO SCH (20:51)
[2018-06-02] MEDS: ASPIRIN 81 MG EC TAB PO SCH (20:51)
[2018-06-02] MEDS: INSULIN GLARGINE 100 UNITS/ML 10 ML VIAL SQ SCH (20:52)
[2018-06-03] VITALS: BP 139/72
[2018-06-03] MEDS: IPRATROPIUM/ALBUTEROL SULFATE 3 ML SOLUTION IH SCH ×4 (00:13→17:58)
[2018-06-03 04:30] VITALS: BP 145/75
[2018-06-03] MEDS: INSULIN HUMULIN R 100 UNIT/ML 3ML SQ SCH ×4 (06:11→20:46)
[2018-06-03] MEDS: LANTHANUM CARBONATE 1000 MG PO SCH ×3 (06:46→16:33)
[2018-06-03 07:37] VITALS: BP 142/79
[2018-06-03] MEDS: AMLODIPINE BESYLATE 5 MG TAB PO SCH (08:42)
[2018-06-03] MEDS: FOLIC ACID/VITAMIN B COMP W-C 1 MG CAPSULE PO SCH (08:42)
[2018-06-03] MEDS: CALCIUM ACETATE 667 MG CAPSULE PO SCH ×4 (08:42→16:33)
[2018-06-03] MEDS: PANTOPRAZOLE SODIUM 40 MG TABLET.DR PO SCH (08:42)
[2018-06-03] MEDS: ENOXAPARIN SODIUM 30 MG/0.3 ML SQ SCH (08:43)
[2018-06-03] MEDS: INSULIN LISPRO 100 UNIT/ML 3ML SQ SCH ×3 (08:50→16:39)
[2018-06-03 11:38] VITALS: BP 141/72
[2018-06-03] MEDS: MEROPENEM 1 GM VIAL IVP SCH (14:23)
[2018-06-03 15:15] VITALS: BP 136/71
[2018-06-03] MEDS: VANCOMYCIN 1.75 GM in SODIUM CHLORIDE 0.9% 250 ML IV SCH (15:50)
[2018-06-03 19:42] VITALS: BP 145/77
[2018-06-03] MEDS: ASPIRIN 81 MG EC TAB PO SCH (20:36)
[2018-06-03] MEDS: METOPROLOL TARTRATE 50 MG TAB PO SCH (20:36)
[2018-06-03] MEDS: INSULIN GLARGINE 100 UNITS/ML 10 ML VIAL SQ SCH (20:38)
[2018-06-04 00:03] VITALS: BP 152/80
[2018-06-04] MEDS: IPRATROPIUM/ALBUTEROL SULFATE 3 ML SOLUTION IH SCH ×3 (00:11→11:24)
[2018-06-04 04:25] VITALS: BP 147/72
[2018-06-04] MEDS: INSULIN HUMULIN R 100 UNIT/ML 3ML SQ SCH ×3 (05:53→16:30)
[2018-06-04] MEDS: LANTHANUM CARBONATE 1000 MG PO SCH ×3 (06:33→16:59)
[2018-06-04 07:00] VITALS: BP 147/79
[2018-06-04 07:30] LABS: BASOPHILS % (AUTO) 0.8 % (0.0-5.0); EOSINOPHILS % (AUTO) 5.7 % (0.0-8.0); HEMATOCRIT 26.7 % (42-54); LYMPHOCYTES % (AUTO) 30.3 % (21.0-51.0); MEAN CORPUSCULAR HEMOGLOBIN 29.3 pg (27.0-33.0); MEAN CORPUSCULAR HGB CONC 33.7 g/dL (32.0-36.0); MEAN CORPUSCULAR VOLUME 86.8 fL (79-99); MONOCYTES % (AUTO) 13.5 % (3.0-13.0); NEUTROPHILS % (AUTO) 49.7 % (40.0-77.0); PLATELET COUNT (AUTO) 328 K/uL (130-400); RED BLOOD CELL COUNT(AUTO) 3.08 MIL/uL (4.50-6.20); RED CELL DISTRIBUTION WIDTH 14.3 % (11.0-15.5)
[2018-06-04 07:43] LABS: POTASSIUM 5.1 mmol/L (3.5-5.1)
[2018-06-04 07:45] LABS: CREATININE 10.8 mg/dL (0.5-1.5)
[2018-06-04] MEDS: PANTOPRAZOLE SODIUM 40 MG TABLET.DR PO SCH (08:00)
[2018-06-04] MEDS: FOLIC ACID/VITAMIN B COMP W-C 1 MG CAPSULE PO SCH (08:00)
[2018-06-04] MEDS: CALCIUM ACETATE 667 MG CAPSULE PO SCH ×4 (08:01→16:50)
[2018-06-04] MEDS: INSULIN LISPRO 100 UNIT/ML 3ML SQ SCH ×4 (08:06→16:53)
[2018-06-04] MEDS: ENOXAPARIN SODIUM 30 MG/0.3 ML SQ SCH (08:07)
[2018-06-04] MEDS: AMLODIPINE BESYLATE 5 MG TAB PO SCH ×2 (09:00→12:56)
[2018-06-04 11:00] VITALS: BP 130/71
[2018-06-04] MEDS: MEROPENEM 1 GM VIAL IVP SCH (14:39)
[2018-06-04 16:00] VITALS: BP 152/76
== END 2018-06-04 17:49 | disposition home or self-care (01) | DRG 871 ==
LOC: EDH 17:13 → EDHIP 19:27 → 2DH 22:47 → 3DH 05-29 15:00
PROVIDERS: ADMIT Internal Medicine; ATTEND Internal Medicine
PROC: 5A1D70Z Performance of Urinary Filtration, Intermittent, Less than 6 Hours Per Day (ICD-10-PCS; principal; 2018-05-26)
PROC: 5A1D70Z Performance of Urinary Filtration, Intermittent, Less than 6 Hours Per Day (ICD-10-PCS; 2018-05-31)
PROC: 5A1D70Z Performance of Urinary Filtration, Intermittent, Less than 6 Hours Per Day (ICD-10-PCS; 2018-06-02)
PROC: 5A1D70Z Performance of Urinary Filtration, Intermittent, Less than 6 Hours Per Day (ICD-10-PCS; 2018-06-04)
DX: A41.9 Sepsis, unspecified organism (principal); N18.6 End stage renal disease; J10.00 Influenza due to other identified influenza virus with unspecified type of pneumonia; E87.1 Hypo-osmolality and hyponatremia; I12.0 Hypertensive chronic kidney disease with stage 5 chronic kidney disease or end stage renal disease; E11.22 Type 2 diabetes mellitus with diabetic chronic kidney disease; E11.319 Type 2 diabetes mellitus with unspecified diabetic retinopathy without macular edema; E11.65 Type 2 diabetes mellitus with hyperglycemia; E11.51 Type 2 diabetes mellitus with diabetic peripheral angiopathy without gangrene; E66.01 Morbid (severe) obesity due to excess calories; D64.9 Anemia, unspecified; E78.5 Hyperlipidemia, unspecified; H54.7 Unspecified visual loss; Y95 Nosocomial condition; Z68.39 Body mass index [BMI] 39.0-39.9, adult; Z99.2 Dependence on renal dialysis; Z79.4 Long term (current) use of insulin; Z82.0 Family history of epilepsy and other diseases of the nervous system; Z82.3 Family history of stroke; Z82.49 Family history of ischemic heart disease and other diseases of the circulatory system; Z83.3 Family history of diabetes mellitus; Z90.49 Acquired absence of other specified parts of digestive tract
CPT/HCPCS: 36415; 71045; 71250; 80048; 80053; 80339; 81001; 82948; 83036; 83605; 83690; 84100; 85025; 85027; 86140; 87040; 87633; 87804; 90935; 93005; 94640; 94664; A4218; J0692; J0696; J1650; J1815; J2185; J2405; J3370; J7030

== ENCOUNTER 2018-06-10 02:41 | Emergency (ER) | payer MEDICARE ==
[~2018-06-10 02:41] MED LIST changes: +CALC667T5 PO; -CLIN300C9 PO; +FOLI1TAB85 PO; -OSEL30CA PO
[2018-06-10] MEDS ORDERED: ONDANSETRON HCL 4 MG/2 ML VIAL ONE (03:27)
[2018-06-10] MEDS ORDERED: SODIUM CHLORIDE 0.9% 250 ML IV ONE (03:28)
[2018-06-10 03:46] LABS: BASOPHILS % (AUTO) 0.9 % (0.0-5.0); EOSINOPHILS % (AUTO) 2.4 % (0.0-8.0); HEMATOCRIT 32.8 % (42-54); LYMPHOCYTES % (AUTO) 38.9 % (21.0-51.0); MEAN CORPUSCULAR HGB CONC 33.3 g/dL (32.0-36.0); MEAN CORPUSCULAR VOLUME 87.1 fL (79-99); MONOCYTES % (AUTO) 16.7 % (3.0-13.0); NEUTROPHILS % (AUTO) 41.1 % (40.0-77.0); NUCLEATED RED BLOOD CELLS 0.2 % (0.0-0.19); PLATELET COUNT (AUTO) 346 K/uL (130-400); RED BLOOD CELL COUNT(AUTO) 3.76 MIL/uL (4.50-6.20); RED CELL DISTRIBUTION WIDTH 13.8 % (11.0-15.5); WHITE BLOOD COUNT (AUTO) 10.6 K/uL (4.8-10.8)
[2018-06-10] MEDS ORDERED: DiphenhydrAMINE HCL 50 MG/ML VIAL ONE (03:58)
[2018-06-10 04:12] LABS: CREATININE 6.7 mg/dL (0.5-1.5); POTASSIUM 4.4 mmol/L (3.5-5.1)
[2018-06-10 04:14] LABS: ALBUMIN 2.8 g/dL (3.5-5.0); BILIRUBIN,TOTAL 0.3 mg/dL (0.2-1.0); TOTAL PROTEIN, SERUM 9.6 g/dL (6.0-8.3)
[2018-06-10] MEDS ORDERED: LORAZEPAM 2 MG/ML 1 ML VIAL ONE (04:53)
== END 2018-06-10 06:38 | disposition home or self-care (01) ==
LOC: EDH 02:41
DX: H81.399 Other peripheral vertigo, unspecified ear (principal); R11.2 Nausea with vomiting, unspecified; I12.0 Hypertensive chronic kidney disease with stage 5 chronic kidney disease or end stage renal disease; E11.22 Type 2 diabetes mellitus with diabetic chronic kidney disease; N18.6 End stage renal disease; Z99.2 Dependence on renal dialysis; Z90.49 Acquired absence of other specified parts of digestive tract
CPT/HCPCS: 36415; 80053; 85025; 93005; 96374; 96375; 99284; J1200; J2060; J2405; J7030

== ENCOUNTER 2018-06-14 13:46 | Emergency (ER) | payer MEDICARE ==
[2018-06-14 14:37] LABS: BASOPHILS % (AUTO) 0.6 % (0.0-5.0); EOSINOPHILS % (AUTO) 1.9 % (0.0-8.0); HEMATOCRIT 28.6 % (42-54); LYMPHOCYTES % (AUTO) 21.2 % (21.0-51.0); MEAN CORPUSCULAR HGB CONC 33.6 g/dL (32.0-36.0); MEAN CORPUSCULAR VOLUME 86.4 fL (79-99); MONOCYTES % (AUTO) 9.5 % (3.0-13.0); NEUTROPHILS % (AUTO) 66.8 % (40.0-77.0); PLATELET COUNT (AUTO) 339 K/uL (130-400); RED BLOOD CELL COUNT(AUTO) 3.32 MIL/uL (4.50-6.20); RED CELL DISTRIBUTION WIDTH 14.6 % (11.0-15.5); WHITE BLOOD COUNT (AUTO) 13.7 K/uL (4.8-10.8)
[2018-06-14 14:56] LABS: ALBUMIN 2.5 g/dL (3.5-5.0); BILIRUBIN,TOTAL 0.4 mg/dL (0.2-1.0); POTASSIUM 4.8 mmol/L (3.5-5.1); TOTAL PROTEIN, SERUM 8.7 g/dL (6.0-8.3)
[2018-06-14] MEDS ORDERED: CEFTRIAXONE SODIUM 1 GM ONE (15:35)
== END 2018-06-14 15:59 | disposition home or self-care (01) ==
LOC: EDH 13:46
DX: I12.0 Hypertensive chronic kidney disease with stage 5 chronic kidney disease or end stage renal disease (principal); E11.22 Type 2 diabetes mellitus with diabetic chronic kidney disease; N18.6 End stage renal disease; Z99.2 Dependence on renal dialysis; Z79.4 Long term (current) use of insulin
CPT/HCPCS: 36415; 71045; 80053; 85025; 87040 ×2; 96374; 99284; J0696

== ENCOUNTER 2018-09-02 03:31 | Emergency (ER) | payer MEDICARE ==
[~2018-09-02 03:31] MED LIST changes: -AMLO10TA6 PO; +AMLO10TA7 PO
[2018-09-02 05:49] LABS: BASOPHILS % (AUTO) 0.8 % (0.0-5.0); EOSINOPHILS % (AUTO) 2.7 % (0.0-8.0); LYMPHOCYTES % (AUTO) 41.5 % (21.0-51.0); MEAN CORPUSCULAR HEMOGLOBIN 28.9 pg (27.0-33.0); MEAN CORPUSCULAR VOLUME 87.6 fL (79-99); MONOCYTES % (AUTO) 15.9 % (3.0-13.0); NEUTROPHILS % (AUTO) 39.1 % (40.0-77.0); PLATELET COUNT (AUTO) 371 K/uL (130-400); RED BLOOD CELL COUNT(AUTO) 3.88 MIL/uL (4.50-6.20); RED CELL DISTRIBUTION WIDTH 15.6 % (11.0-15.5)
[2018-09-02 05:54] LABS: CREATININE 6.8 mg/dL (0.5-1.5); POTASSIUM 4.6 mmol/L (3.5-5.1)
[2018-09-02 05:58] LABS: ALBUMIN 2.9 g/dL (3.5-5.0); BILIRUBIN,TOTAL 0.2 mg/dL (0.2-1.0)
[2018-09-02] MEDS ORDERED: ONDANSETRON HCL 4 MG/2 ML VIAL ONE (06:35)
[2018-09-02] MEDS ORDERED: FAMOTIDINE/PF 20 MG/2 ML VIAL IV ONE (06:36)
[2018-09-02] MEDS ORDERED: SUCRALFATE 1 GM TABLET ONE (06:36)
[2018-09-02] MEDS ORDERED: MORPHINE SULFATE 2 MG/ML 1ML SYG ONE (07:37)
[2018-09-02 10:50] LABS: APPEARANCE,URINE Turbid (CLEAR); BILIRUBIN,URINE Negative (NEGATIVE); COLOR,URINE Yellow (YELLOW); GLUCOSE, URINE (UA) >=1000 mg/dL (NEGATIVE); KETONES,URINE Trace mg/dL (NEGATIVE); LEUKOCYTE ESTERASE ,URINE Small (NEGATIVE); NITRATE,URINE Negative (NEGATIVE); OCCULT BLOOD,URINE Small (NEGATIVE); PH,URINE 6.5 (5.0-8.0); PROTEIN,URINE >=1000 (NEGATIVE)
[2018-09-02 10:56] LABS: BACTERIA,URINE Rare /HPF (None Seen); RBC,URINE 0-1 /HPF (0-1)
[2018-09-02 10:57] LABS: SQUAMOUS EPITHELIAL CELL,UR Moderate /HPF (0-2)
[2018-09-03] MEDS ORDERED: FOLI1TAB85 PO (20:56)
== END 2018-09-02 10:39 | disposition home or self-care (01) ==
LOC: EDH 03:31
DX: I12.0 Hypertensive chronic kidney disease with stage 5 chronic kidney disease or end stage renal disease (principal); E11.22 Type 2 diabetes mellitus with diabetic chronic kidney disease; N18.6 End stage renal disease; R10.13 Epigastric pain; Z99.2 Dependence on renal dialysis; Z90.49 Acquired absence of other specified parts of digestive tract; Z79.4 Long term (current) use of insulin
CPT/HCPCS: 36415; 80053; 81001; 82150; 82550; 83690; 84484; 85025; 93005; 96374; 96375; 99284; J2405; J3490

== ENCOUNTER 2018-09-03 14:51 | Inpatient (IN) | payer MEDICARE ==
[~2018-09-03] VITALS: Ht 182.9 cm; Wt 131.2 kg
[2018-09-03 16:00] LABS: BASOPHILS % (AUTO) 0.3 % (0.0-5.0); EOSINOPHILS % (AUTO) 0.5 % (0.0-8.0); HEMATOCRIT 32.5 % (42-54); LYMPHOCYTES % (AUTO) 14.9 % (21.0-51.0); MEAN CORPUSCULAR HEMOGLOBIN 28.5 pg (27.0-33.0); MEAN CORPUSCULAR HGB CONC 32.5 g/dL (32.0-36.0); MEAN CORPUSCULAR VOLUME 87.7 fL (79-99); MONOCYTES % (AUTO) 10.2 % (3.0-13.0); NEUTROPHILS % (AUTO) 74.1 % (40.0-77.0); PLATELET COUNT (AUTO) 302 K/uL (130-400); RED BLOOD CELL COUNT(AUTO) 3.71 MIL/uL (4.50-6.20); RED CELL DISTRIBUTION WIDTH 15.8 % (11.0-15.5)
[2018-09-03 16:21] LABS: ALBUMIN 2.8 g/dL (3.5-5.0); BILIRUBIN,TOTAL 0.5 mg/dL (0.2-1.0); TOTAL PROTEIN, SERUM 8.7 g/dL (6.0-8.3)
[2018-09-03 16:29] LABS: RAPID GROUP A STREP NEGATIVE (NEGATIVE)
[2018-09-03 16:35] LABS: APPEARANCE,URINE CLOUDY (CLEAR); BILIRUBIN,URINE NEGATIVE (NEGATIVE); COLOR,URINE YELLOW (YELLOW); GLUCOSE, URINE (UA) 500 mg/dL (NEGATIVE); KETONES,URINE NEGATIVE (NEGATIVE); LEUKOCYTE ESTERASE ,URINE NEGATIVE (NEGATIVE); NITRATE,URINE NEGATIVE (NEGATIVE); OCCULT BLOOD,URINE MODERATE (NEGATIVE); PROTEIN,URINE >=300 (NEGATIVE); UROBILINOGEN,URINE 0.2 mg/dL (0.2-1.0)
[2018-09-03 16:43] LABS: AMPHET/METH SCREEN,URINE NEGATIVE (NEGATIVE); BARBITURATE SCREEN, URINE NEGATIVE (NEGATIVE); BENZODIAZEPINES SCREEN,URINE NEGATIVE (NEGATIVE); CANNABINOID SCREEN,URINE NEGATIVE (NEGATIVE); COCAINE SCREEN,URINE NEGATIVE (NEGATIVE); OPIATE SCREEN,URINE NEGATIVE (NEGATIVE); PHENCYCLIDINE SCREEN,URINE NEGATIVE (NEGATIVE)
[2018-09-03 16:57] LABS: BACTERIA,URINE Few /HPF (None Seen)
[2018-09-03 17:08] LABS: AMORPHOUS SEDIMENT,UR Few /LPF (None Seen); SQUAMOUS EPITHELIAL CELL,UR Moderate /HPF (0-2)
[2018-09-03] MEDS: HYDROCORTISONE SOD SUCCINATE 100 MG/2 ML VIAL IV SCH (17:15)
[2018-09-03] MEDS ORDERED: HYDROCORTISONE SOD SUCCINATE 100 MG/2 ML VIAL ONE (17:23)
[2018-09-03] MEDS ORDERED: ACETAMINOPHEN 325 MG TAB PO PRN ×2 (17:45)
[2018-09-03] MEDS ORDERED: HYDRALAZINE HCL 20 MG/ML VIAL IV PRN (17:45)
[2018-09-03] MEDS ORDERED: MORPHINE SULFATE 4 MG/1ML SYG IV PRN (17:45)
[2018-09-03] MEDS ORDERED: ONDANSETRON HCL 4 MG/2 ML VIAL IV PRN (17:45)
[2018-09-03] MEDS ORDERED: ONDANSETRON HCL 4 MG/2 ML VIAL ONE (18:32)
[2018-09-03] MEDS ORDERED: MORPHINE SULFATE 4 MG/1ML SYG ONE (18:33)
[2018-09-03 18:36] LABS: CREATINE KINASE, TOTAL 120 U/L (21-232); MYOGLOBIN 369 ng/mL (10-92); TROPONIN I < 0.04 ng/mL (0.00-0.06)
[2018-09-03] MEDS ORDERED: FOLI1TAB85 PO (20:56)
[2018-09-03 20:58] VITALS: BP 164/82
[2018-09-03] MEDS ORDERED: INSULIN GLARGINE 100 UNITS/ML 10 ML VIAL SQ SCH (21:00)
[2018-09-03] MEDS ORDERED: METOPROLOL TARTRATE 50 MG TAB PO SCH (21:00)
[2018-09-03] MEDS ORDERED: FAMOTIDINE/PF 20 MG/2 ML VIAL IV SCH (21:00)
[2018-09-03] MEDS: INSULIN LISPRO 100 UNIT/ML 3ML SQ SCH (21:42)
[2018-09-03] MEDS: FAMOTIDINE/PF 20 MG/2 ML VIAL IV SCH (21:45)
[2018-09-03] MEDS: MORPHINE SULFATE 2 MG/ML 1ML SYG IV PRN (23:13)
[2018-09-03 23:56] VITALS: BP 142/70
[2018-09-04 02:01] LABS: CREATINE KINASE, TOTAL 92 U/L (21-232); MYOGLOBIN 322 ng/mL (10-92); TROPONIN I < 0.04 ng/mL (0.00-0.06)
[2018-09-04 03:35] VITALS: BP 137/65
[2018-09-04] MEDS: INSULIN LISPRO 100 UNIT/ML 3ML SQ SCH ×6 (05:45→16:59)
[2018-09-04 07:00] VITALS: BP 145/70
[2018-09-04] MEDS ORDERED: LANTHANUM CARBONATE 1000 MG PO SCH (07:30)
[2018-09-04] MEDS: CALCIUM ACETATE 667 MG CAPSULE PO SCH ×3 (07:43→16:59)
--- NOTE | 2018-09-04 07:50 | NUR ---
ASSESSMENT ENCOUNTERED PT A&OX3, CALM COOPERATIVE AND DOES NOT APPEAR TO BE IN ANY DISTRESS NOR ANY NEURO DEFICITS PRESENT. PT DENIES PAIN, SOB, NAUSEA BUT DOES C/O BACK AND CERVICAL PAIN WHEN ATTEMPTING TO LAY FLAT. PT RESTING COMFORTABLY. PT IS ABLE TO TOLERATE FOODS AND FLUIDS WITH NO THROAT CLEARING OR COUGH. PERMACATH TO [facility], SITE DRY AND INTACT. CALL LIGHT WITHIN REACH, DIALYSIS PERSONNEL AT BEDSIDE FOR HEMODIALYSIS.
[2018-09-04] MEDS ORDERED: FOLIC ACID/VITAMIN B COMP W-C 1 MG CAPSULE PO SCH (09:00)
[2018-09-04] MEDS: HOME MEDICATION 1 EACH PO SCH ×3 (09:00→16:58)
[2018-09-04] MEDS ORDERED: COLCHICINE 0.6 MG TABLET PO SCH (09:00)
[2018-09-04] MEDS ORDERED: ENOXAPARIN SODIUM 30 MG/0.3 ML SQ SCH (09:00)
[2018-09-04] MEDS ORDERED: ASPIRIN 325 MG TABLET PO SCH (09:00)
[2018-09-04] MEDS ORDERED: AMLODIPINE BESYLATE 5 MG TAB PO SCH (09:00)
[2018-09-04 09:54] LABS: CREATINE KINASE, TOTAL 80 U/L (21-232); MYOGLOBIN 306 ng/mL (10-92); TROPONIN I < 0.04 ng/mL (0.00-0.06)
[2018-09-04 11:00] VITALS: BP 127/66
[2018-09-04] MEDS ORDERED: SODIUM CHLORIDE 0.9% 1000ML 1,000 ML IV ONE (11:48)
[2018-09-04] MEDS ORDERED: HEPARIN SODIUM 5000UNIT/ML 1ML VIAL IJ PRN ×2 (12:00)
[2018-09-04] MEDS ORDERED: ACETAMINOPHEN 325 MG TAB PO PRN (12:00)
[2018-09-04] MEDS ORDERED: SODIUM CHLORIDE 0.9% 1000ML 1,000 ML IV PRN (12:00)
[2018-09-04] MEDS ORDERED: 0.9% SODIUM CHLORIDE 1000 ML IV BAG IV PRN (12:00)
[2018-09-04] MEDS ORDERED: NITROGLYCERIN 0.4 MG SL TAB SL PRN (12:00)
[2018-09-04] MEDS ORDERED: LIDOCAINE HCL-MPF 1% 2ML VIAL IJ PRN (12:00)
[2018-09-04] MEDS: FAMOTIDINE/PF 20 MG/2 ML VIAL IV SCH (12:24)
[2018-09-04] MEDS: MORPHINE SULFATE 2 MG/ML 1ML SYG IV PRN (12:31)
[2018-09-04 16:00] VITALS: BP 138/72
[2018-09-04] MEDS: HYDROCORTISONE SOD SUCCINATE 100 MG/2 ML VIAL IV SCH (16:59)
[2018-09-04] MEDS ORDERED: COLC0.6T70 PO (17:29)
[2018-09-04] MEDS ORDERED: INSU200I SQ (17:29)
[2018-09-04] MEDS ORDERED: INSU3INS3 SQ (17:29)
[2018-09-04] MEDS ORDERED: SYRI-1554 MC (17:29)
--- NOTE | 2018-09-04 17:30 | NUR ---
DISCHARGE INSTRUCTIONS GIVEN, PIV REMOVED AND INTACT, DISCHARGED HOME TO FAMILY VEHICLE VIA WHEELCHAIR.
== END 2018-09-04 18:15 | disposition home or self-care (01) | DRG 314 ==
LOC: EDH 14:51 → EDHIP 17:33 → 2DH 20:43
PROVIDERS: ADMIT Internal Medicine; ATTEND Internal Medicine
PROC: 5A1D70Z Performance of Urinary Filtration, Intermittent, Less than 6 Hours Per Day (ICD-10-PCS; principal; 2018-09-04)
DX: I30.9 Acute pericarditis, unspecified (principal); N18.6 End stage renal disease; I12.0 Hypertensive chronic kidney disease with stage 5 chronic kidney disease or end stage renal disease; E11.22 Type 2 diabetes mellitus with diabetic chronic kidney disease; I25.10 Atherosclerotic heart disease of native coronary artery without angina pectoris; E87.70 Fluid overload, unspecified; D72.829 Elevated white blood cell count, unspecified; R09.02 Hypoxemia; Z83.3 Family history of diabetes mellitus; Z82.3 Family history of stroke; Z82.49 Family history of ischemic heart disease and other diseases of the circulatory system; Z99.2 Dependence on renal dialysis; Z82.0 Family history of epilepsy and other diseases of the nervous system; Z82.5 Family history of asthma and other chronic lower respiratory diseases; Z79.4 Long term (current) use of insulin; Z90.49 Acquired absence of other specified parts of digestive tract; Z91.19 Patient's noncompliance with other medical treatment and regimen
CPT/HCPCS: 36415; 71045; 80053; 80305; 80339; 81001; 82550; 82948; 83605; 83690; 83874; 84484; 85025; 85651; 86140; 87804; 87880; 90935; 93005; 93306; 99291; G0378; J1644; J1650; J1720; J2270; J2405; J3490; J7030

== ENCOUNTER 2018-09-10 23:03 | Emergency (ER) | payer MEDICARE ==
[~2018-09-10 23:03] MED LIST changes: +COLC0.6T70 PO; +INSU200I SQ; +INSU3INS3 SQ; +SYRI-1554 MC
[2018-09-11] MEDS ORDERED: ASPIRIN 325 MG TABLET ONE (01:44)
[2018-09-11 02:14] LABS: BASOPHILS % (AUTO) 0.8 % (0.0-5.0); EOSINOPHILS % (AUTO) 3.1 % (0.0-8.0); HEMATOCRIT 29.4 % (42-54); LYMPHOCYTES % (AUTO) 34.8 % (21.0-51.0); MEAN CORPUSCULAR HEMOGLOBIN 28.6 pg (27.0-33.0); MEAN CORPUSCULAR HGB CONC 33.8 g/dL (32.0-36.0); MEAN CORPUSCULAR VOLUME 84.7 fL (79-99); MONOCYTES % (AUTO) 18.3 % (3.0-13.0); PLATELET COUNT (AUTO) 344 K/uL (130-400); RED BLOOD CELL COUNT(AUTO) 3.47 MIL/uL (4.50-6.20); RED CELL DISTRIBUTION WIDTH 15.4 % (11.0-15.5); WHITE BLOOD COUNT (AUTO) 10.1 K/uL (4.8-10.8)
[2018-09-11 02:33] LABS: ALBUMIN 2.7 g/dL (3.5-5.0); BILIRUBIN,TOTAL 0.3 mg/dL (0.2-1.0); POTASSIUM 5.2 mmol/L (3.5-5.1); TOTAL PROTEIN, SERUM 8.9 g/dL (6.0-8.3)
[2018-09-11 02:38] LABS: CREATININE 10.8 mg/dL (0.5-1.5)
[2018-09-11 02:47] LABS: INR 0.94 (0.85-1.15); PARTIAL THROMBOPLASTIN TIME 27.8 SEC (26.3-35.5); PROTHROMBIN TIME 9.9 SEC (9.6-11.6)
[2018-09-11] MEDS ORDERED: DIAZEPAM 5 MG TABLET ONE (04:19)
== END 2018-09-11 06:10 | disposition home or self-care (01) ==
LOC: EDH 23:03
DX: M25.511 Pain in right shoulder (principal); M25.512 Pain in left shoulder; M54.2 Cervicalgia; M19.90 Unspecified osteoarthritis, unspecified site; I12.0 Hypertensive chronic kidney disease with stage 5 chronic kidney disease or end stage renal disease; E11.22 Type 2 diabetes mellitus with diabetic chronic kidney disease; R07.89 Other chest pain; N18.6 End stage renal disease; Z90.49 Acquired absence of other specified parts of digestive tract; Z99.2 Dependence on renal dialysis
CPT/HCPCS: 36415; 71045; 72125; 80053; 82550; 83874; 84484; 85025; 85610; 85730; 93005